=== PATIENT | female | born 1965 | race Asian ===

== ENCOUNTER → 2018-02-16 | Outpatient (CLI) | payer OTHER ==
--- NOTE | 2018-02-17 14:45 | MAMMOGRAPHY REPORT ---
BILATERAL DIGITAL SCREENING MAMMOGRAM TOMOSYNTHESIS WITH CAD: 02/16/2018 CLINICAL HISTORY: Routine screening. Patient has no complaints. TECHNIQUE: Breast tomosynthesis in addition to standard 2D mammography was performed. Current study was also evaluated with a Computer Aided Detection (CAD) system. COMPARISON: Comparison is made to exams dated: 08/26/2011 mammogram - [facility], , 06/05/2008, 06/05/2008, and 05/11/2008. BREAST COMPOSITION: The tissue of both breasts is heterogeneously dense, which may obscure small mas ses. FINDINGS: No suspicious masses, calcifications, or areas of architectural distortion are noted in ei ther breast. There has been no significant interval change compared to prior exams. IMPRESSION: ACR BI-RADS CATEGORY 1: NEGATIVE There is no mammographic evidence of malignancy. A 1 year screening mammogram is recommended. The pa tient will receive written notification of the results. Approximately 10% of breast cancers are not detected with mammography. A negative mammographic report should not delay biopsy if a clinically suggestive mass is present. Clair Esteves M.D. ah/:02/16/2018 15:53:26 Marketing Operations Coordinator: Mervat TRAMMELL(R)(M), [facility] letter sent: Normal 1/2 BI-RADS Code: ACR BI-RADS Category 1: Negative
== END | disposition home or self-care (01) ==
LOC: C.MAMM 15:13
PROVIDERS: ATTEND Family Medicine
DX: Z12.31 Encounter for screening mammogram for malignant neoplasm of breast (principal)

== ENCOUNTER → 2018-05-26 | Outpatient (CLI) | payer OTHER ==
--- NOTE | 2018-05-26 10:49 | DIAGNOSTIC IMAGING REPORT ---
KUB HISTORY: Acute left upper quadrant abdominal pain R10.12 Abdominal pain, LUQ (left upper quadrant)[id number] COMPARISON: None. FINDINGS: The bowel gas pattern is non-obstructive. Moderate volume of formed stool is noted throughout the colon. There is no organomegaly. Renal shadows are obscured by bowel gas. No definite renal or ureteral calculi identified. 6 mm ovoid calcification of the left hemipelvis suggest probable phlebolith. No pneumoperitoneum or pneumatosis. No fracture. Mild convex left curvature about the mid lumbar spine. IMPRESSION: 1. Nonobstructive bowel gas pattern. 2. No renal or ureteral calculi identified. 3. Suggested constipation. Electronically signed by: Daniel Sam M.D. 05/26/2018 10:48 AM Dictated Date/Time: 05/26/2018 10:47 AM
== END | disposition home or self-care (01) ==
LOC: C.RAD1850 10:32
PROVIDERS: ATTEND Physician Assistant
DX: R10.12 Left upper quadrant pain (principal)